=== PATIENT | female | born 1955 | race Caucasian/White ===

== ENCOUNTER → 2021-03-29 09:03 | Outpatient (CLI) | payer OTHER, SELFPAY ==
--- NOTE | ~2021-03-29 | DEXA_ITS ---
Bone Density Report Name: oVnnie Cherry Age: 66 Sex: Female Ethnicity: Date of : 1955 Indication: osteopenia; postmenopausal Referring Provider: EUNICE DELACRUZ Study: Bone densitometry was performed. Exam Date: March 29, 2021 Accession number: [id number] Bone Density: Region BMD T-score Z-score Classification AP Spine (L1-L4) 0.869 -1.6 0.1 Osteopenia Femoral Neck (Left) 0.722 -1.1 0.1 Osteopenia Total Hip (Left) 0.932 -0.1 0.9 Normal Femoral Neck (Right) 0.724 -1.1 0.2 Osteopenia Total Hip (Right) 0.908 -0.3 0.7 Normal Total Hip Mean 0.920 -0.2 0.8 Normal World Health Organization criteria for BMD impression classify patients as: Normal (T-score at or above -1.0), Osteopenia (T-score between -1.0 and -2.5), or Osteoporosis (T-score at or below -2.5). 10-year Fracture Risk(1): Major Osteoporotic Fracture 4.2% Hip Fracture 0.3% Reported Risk Factors: [place] (), Neck BMD=0.724, BMI=35.7 (1) FRAX(R) Version 3.08. Fracture probability calculated for an untreated patient. Fracture probability may be lower if the patient has received treatment. Previous Exams: Region Exam Age BMD T-score BMD Change BMD Change Date g/cm2 vs Baseline vs Previous AP Spine(L1-L4) 03/29/2021 66 0.869 -1.6 0.018 -0.047 02/25/2015 60 0.916 -1.2 0.065* 0.065* 05/01/2011 56 0.851 -1.8 Total Hip(Left) 03/29/2021 66 0.932 -0.1 0.044 0.015 02/25/2015 60 0.917 -0.2 0.029* 0.029* 05/01/2011 56 0.888 -0.4 Total Hip(Right) 03/29/2021 66 0.908 -0.3 0.029 -0.001 02/25/2015 60 0.908 -0.3 0.029* 0.029* 05/01/2011 56 0.879 -0.5 *Denotes significance at 95% confidence level, LSC for AP Spine = 0.022 g/cm2, LSC for Total Hip = 0.027 g/cm2 Clinical Information Provided by Patient: Has used the following medications: Vitamin D Patient maximum height was 64 Menopause Age: 48 No regular weight bearing exercise Drinks caffeinated beverages Onset of menses at age 13 Number of children 3 Missed period for more than 6 months in a row Impression: The patient has low bone mass, based on the Total Spine T-score. The patient has an estimated ten-year risk of hip fracture of 0.3% and an estimated ten-year risk of major fracture of 4.2%, based on the WHO FRAX algorithm. No significant bone loss was observe
--- NOTE | ~2021-03-29 | MM_ITS ---
EXAMINATION: MM screening [facility] BI w sarai HISTORY: Screening mammogram TECHNIQUE: Craniocaudal and mediolateral oblique 3-D tomosynthesis images were obtained and synthetic 2-D images were generated. CAD analysis was submitted and interpreted. COMPARISON: 02/25/2015, 02/08/2013 BREAST PARENCHYMAL COMPOSITION: The breasts are almost entirely fatty. FINDINGS: There is no evidence of suspicious mass, calcification, or architectural distortion to sugg est malignancy in either breast. There has been no suspicious interval change. IMPRESSION: 1. No mammographic evidence of malignancy. 2. Recommend routine screening mammography in one year. BI-RADS Category 1: Negative Reviewed, dictated and finalized at location A.
== END ==
PROVIDERS: PCP Family Medicine Adolescent Medicine; Visit Provider Family Medicine Adolescent Medicine
DX: Z12.31 Encounter for screening mammogram for malignant neoplasm of breast (principal); Z78.0 Asymptomatic menopausal state; M85.88 Other specified disorders of bone density and structure, other site; M85.852 Other specified disorders of bone density and structure, left thigh; M85.851 Other specified disorders of bone density and structure, right thigh
CPT/HCPCS: 77063; 77067; 77080

== ENCOUNTER → 2021-12-25 13:21 | Outpatient (CLI) | payer OTHER, SELFPAY ==
--- NOTE | ~2021-12-25 | MR_ITS ---
EXAMINATION: MR brain/brain stem wo con EXAM DATE: 12/25/2021 14:06 INDICATION: R42 - Dizziness and giddiness TECHNIQUE: Multi-sequential, multiplanar MR images of the brain, brainstem, internal auditory canals were obtained without contrast. Whole brain sagittal T1, axial diffusion, gradient echo (T2*), T1, T 2, FLAIR sequences obtained. High resolution coronal 3-D FIESTA, coronal T1 FSE, axial T1 FSPGR of t he internal auditory canals. There are no prior studies for comparison. FINDINGS: No evidence of mastoid or middle ear opacification. The 7th/8th cranial nerve complexes a re symmetric, normal in course and caliber. No cerebellopontine angle masses. Posterior fossa unrem arkable. An artery which is probably the right anterior inferior cerebellar artery is extending >50% into the respective internal auditory canal. This finding has been implicated by some in potentially causing compressive 7th/8th cranial nerve symptoms, a vascular loop compressive syndrome, but is oft en seen incidentally in asymptomatic patients. There are no areas of restricted diffusion to suggest acute infarction. There is no acute hemorrhage seen on the T2*, a hemosiderin sensitive sequence. No intraparenchymal brain mass lesion. There is mild periventricular and subcortical T2/FLAIR signal hyperintensity, nonspecific but probably relate d to small vessel ischemic disease (microangiopathy). There is mild prominence of the sulci and анна tricles related to cerebral atrophy. There are no extra-axial collections. Flow voids are seen in the cerebral arteries on the T2-weighted sequences consistent with their expected patency. The orbit s are unremarkable. Soft tissue is unremarkable. Mild to moderate right maxillary sinus mucoperiost eal thickening. IMPRESSION: 1. Mild microangiopathy and cerebral atrophy 2. Right AICA extending into interior of internal auditory canal, could be incidental. 3. Mild to moderate right maxillary sinus mucoperiosteal thickening. Reviewed, dictated and finalized at location B. IMPRESSION: 1. Mild microangiopathy and cerebral atrophy 2. Right AICA extending into interior of internal auditory canal, could be inc idental. 3. Mild to moderate right maxillary sinus mucoperiosteal thickening.
== END ==
PROVIDERS: PCP Family Medicine Adolescent Medicine; Visit Provider Physician Assistant
DX: R42 Dizziness and giddiness (principal); H53.9 Unspecified visual disturbance; R51.9 Headache, unspecified; R93.0 Abnormal findings on diagnostic imaging of skull and head, not elsewhere classified
CPT/HCPCS: 70551

== ENCOUNTER 2022-02-06 08:00 | Outpatient (RCR) | payer OTHER, SELFPAY ==
--- NOTE | 2022-01-02 16:30 | PTOPEVAL ---
Thank you for referring Vonnie Cherry to [facility].? The patient is scheduled to be seen for therapy?2 x/week for 6 weeks. Please review, sign, date and return this plan of care BONG. I agree with and certify that the following plan of care is medically necessary. Referring Physician Date Attending Provider: Darcy Duque PA-C *PT Outpatient Evaluation Start: 01/02/22 12:26 Freq: Status: Active Protocol: Document 01/02/22 12:28 CRISTINA (Rec: 01/02/22 13:27 [facility] [id number]) Therapy Assessment Status Assessment Status Assessment Status Evaluation Outpatient Past Medical History Past Medical History No Past Medical/Surgical History Patient/Family Denies Significant Past Medical/ Surgical History Evaluation Information Problem Diagnosis vertigo/dizziness Onset years Subjective Information Various bouts of vertigo Query Text:As Reported By Patient/ symptoms. She reports she has Family only ringing with loss hearing of left ear since her 20's. She reports increased symptoms with head movements in bed, sitting, rolling. Denies any issues with driving. Denies any falls in the past year. She is retired with sedentary activities. Diagnostic Tests MRI For This Problem Yes: An artery which is probably the right anterior inferior cerebellar artery i Previous Treatments Previous Treatments For This Problem no Pain Assessment Self Report Self Report Pain Level 0 Cervical and Lumbar ROM Cervical ROM Reason Not Measured WNL/Left,WNL/Right Posture Sitting Position Head/C-Spine Posture Side Bent Right Shoulder Posture (L) Rounded,(R) Rounded,(L) Elevated Balance Assessment Dynamic Gait Index Total Score () Vestibular Evaluation Vestibular Medical Information Past Vestibular History Sinus/Allergy Issues Recent Symptoms Vision Changes Previous Medical Care/Testing MRI Hearing Changes Left,Tinnitus Symptoms Increase Bend Forward,Lie Down (sit to supine),Look Up,Looking Side to Side,Quick Head Turns, Rolling in Bed,Sitting up in Bed Symptoms Decrease Holding Head in one Position Types of Symptoms Imbalanced/Unsteady,Rocking/
--- NOTE | 2022-01-23 09:36 | PTOPEVAL ---
Thank you for referring Vonnie Cherry to [facility].? The patient is scheduled to be seen for therapy? 1 visits every 2 weeks for 3 additional visits. Please review, sign, date and return this plan of care BONG. I agree with and certify that the following plan of care is medically necessary. Referring Physician Date Attending Provider: Darcy Duque PA-C Diagnosis vertigo/dizziness Onset years Subjective Information She reports improved Query Text:As Reported By Patient/ vestibular symptoms with head Family movements in bed, sitting, rolling. Denies any problems with her HEP. Reports improved community ambulation with ability to turn head during walking task without increased symptoms and improved performance and confidence with negotiating steps. Denies any increased symptoms or limitation with workers compensation administrator. Pain Assessment Self Report Pain Level 0 Balance Assessment Dynamic Gait Index Total Score () Vestibular Evaluation Vestibular Testing Smooth Pursuits Abnormal,Horizontal Plane Sitting Head Thrust WNL Gaze Stabilization with Fixation WNL Gaze Stabilization without Fixation WNL Head Shake with Fixation WNL Edd-Hallpike Left Upward Nystagmus Edd-Hallpike Right WNL Vestibular Testing Comments left eye with nystagmus with smooth pursuit Edd-Hallpike: 20 sec nystagmus General Exercise - performs vertical and horizontal head turns with walking, cues to slow head turns to allow time to focus with movement -picking up objects in multiple directions without LOB or symptoms - tossing multi colored ball vertical with tracking-no symptoms - VOR cancellation movement with UE and head horizontal turns- no symptoms. PT Clinical Summary Vonnie was referred to therapy due to BPPV symptoms.She has received 7 therapy visits from 01/02/22 to 01/23/22.
--- NOTE | 2022-02-06 15:57 | PCPTNOTE ---
Admitting Provider: Attending Provider: Darcy Duque PA-C Patient:Vonnie Cherry Date of :1955 Physical Therapy Discharge Summary Patient has been seen for 8 therapy visits to address her vertigo symptoms. She reports improved symptoms with only 1 episode of slight dizziness yesterday, while doing the exercises, that last only a few seconds, otherwise no dizziness. Able to walk the dogs,& is now getting up in the morning without symptoms. She demonstrates no LOB or vestibular symptoms with dynamic balance task on various surfaces or movement. Dynamic Gait Index has remained consistent at 22/24, improved standing with eyes closed for 30 sec , no symptoms Demonstrates negative [place]-Hallpike test kimberlee. The goals have been met to partially met at this time. Will DC skilled therapy services at this time. Thank you for referring this patient to [facility]. Please review, sign, date and return this discharge summary BONG. I have been updated about the patient's current status and I agree with discharge from the above service at this time. Referring Physician Date
== END 2022-02-09 10:39 | disposition home or self-care (01) ==
LOC: ANHPT 08:00
PROVIDERS: PCP Family Medicine Adolescent Medicine; Visit Provider Physician Assistant
DX: R42 Dizziness and giddiness (principal)
CPT/HCPCS: 97112; 97162; 97530

== ENCOUNTER → 2023-07-07 12:15 | Outpatient (CLI) | payer OTHER, SELFPAY ==
--- NOTE | ~2023-07-07 | MM_ITS ---
EXAMINATION: MM screening [facility] BI w sarai HISTORY: Screening mammogram TECHNIQUE: Craniocaudal and mediolateral oblique 3-D tomosynthesis images were obtained and synthetic 2-D images were generated. CAD analysis was submitted and interpreted. COMPARISON: 04/11/2021 bilateral screening mammogram BREAST PARENCHYMAL COMPOSITION: The breasts are almost entirely fatty. FINDINGS: There is no evidence of suspicious mass, calcification, or architectural distortion to sugg est malignancy in either breast. There has been no suspicious interval change. IMPRESSION: 1. No mammographic evidence of malignancy. 2. Recommend routine screening mammography in one year. BI-RADS Category 1: Negative Reviewed, dictated and finalized at location A.
== END ==
PROVIDERS: PCP Nurse Practitioner Family; Visit Provider Nurse Practitioner Family
DX: Z12.31 Encounter for screening mammogram for malignant neoplasm of breast (principal)
CPT/HCPCS: 77063; 77067

== ENCOUNTER → 2023-08-12 12:08 | Outpatient (CLI) | payer OTHER, SELFPAY ==
--- NOTE | ~2023-08-12 | XR_ITS ---
Right foot Technique: AP, oblique, and lateral views were obtained. Clinical History: Pain Findings: No acute fracture or dislocation is seen. Osseous alignment is anatomic. Small plantar calc aneal spur present. Joint spaces are preserved without erosive or degenerative change. Soft tissues a re unremarkable. Impression: Small plantar calcaneal spur, otherwise unremarkable exam. Reviewed, dictated and finalized at location . CUTTER Impression: Small plantar calcaneal spur, otherwise unremarkable exam.
== END ==
PROVIDERS: PCP Nurse Practitioner Family; Visit Provider Nurse Practitioner Family
DX: M79.671 Pain in right foot (principal); M77.31 Calcaneal spur, right foot
CPT/HCPCS: 73630

== ENCOUNTER 2024-07-10 10:09 | Outpatient (CLI) | payer OTHER, SELFPAY ==
--- NOTE | ~2024-07-10 | MM_ITS ---
EXAMINATION: MM screening [facility] BI w sarai HISTORY: Screening TECHNIQUE: Craniocaudal and mediolateral oblique 3-D tomosynthesis images were obtained and synthetic 2-D images were generated. CAD analysis was submitted and interpreted. COMPARISON: Comparison to multiple prior studies sequentially, with oldest reviewed study dated 09/2014. BREAST PARENCHYMAL COMPOSITION: Not Dense: The breasts are almost entirely fatty. FINDINGS: There is no evidence of suspicious mass, calcification, or architectural distortion to sugg est malignancy in either breast. There has been no suspicious interval change. IMPRESSION: 1. No mammographic evidence of malignancy. 2. Recommend routine screening mammography in one year. BI-RADS Category 1: Negative Reviewed, dictated and finalized at location B.
== END 2024-07-10 10:10 | disposition home or self-care (01) ==
PROVIDERS: PCP Family Medicine Adolescent Medicine; Visit Provider Family Medicine Adolescent Medicine
DX: Z12.31 Encounter for screening mammogram for malignant neoplasm of breast (principal)
CPT/HCPCS: 77063; 77067

== ENCOUNTER 2025-04-03 02:45 | Day surgery (SDC) | payer OTHER, SELFPAY ==
[2025-03-19 08:46] VITALS: BMI 35.4
--- OUTSIDE RECORDS SUMMARY | 2025-04-03 02:48 | XMS_ITS | Clinical Summary ---
Author Organization [facility] Address [facility] [place] [address] Care Team Providers Care Hosiery Mater Name Role Phone Roland Dos Santos MD Primary Care Provider [phone]- [phone] Allergies Active Allergy Reactions Criticality Noted Date Comments Latex Rash Low 05/01/2021 Penicillin V Rash Low 04/23/2021 Medications Cholecalciferol (VITAMIN D3) 50 MCG (1999 UT) Tab Take 1 tablet by mouth daily. Active Multiple Vitamins-Mineral s (CENTRUM SILVER 50+WOMEN OR) Take 1 tablet by mouth daily. Active Probiotic Product (PROBIOTIC ADVANCED) Cap Take 1 tablet by mouth daily. Active mirabegron ER (MYRBETRIQ) 25 MG 24 hr tablet Take 25 mg by mouth daily. Active ibandronate 150 MG tablet Take 150 mg by mouth every 30 (thirty) days. Active Immunizations Immunization Administration Dates Next Due Flublok (Quadrivalent) 07/30/2020 Influenza Adult (Generic) 10/05/2012 PFIZER COVID-19 (ORIGINAL FO RMULATION, PURPLE CAP) mRNA, LNP-S, PF, 30 MCG/0.3 ML DOSE 01/16/2021,12/26/2020 Family History Medical History Relation Comments Diabetes Brother Aneurysm Father Hypertension Father No Known Problems Sister Relation Status Comments Brother Alive Father (Age late 70s) Mother (Age mva) Sister Alive Social History Tobacco Use Types Packs/Day Years Used Date Smoking Tobacco: Never Smokeless Tobacco: Never Alcohol Use Standard Drinks/Week Comments Not Currently 0 (1 standard drink = 0.6 oz pur e alcohol) Comments No Sex and Gender Information Value Date Recorded Sex Assigned at Not on file Legal Sex Female 2:04 PM CDT Gender Identity Not on file Sexual Orientation Not on file Last Filed Vital Signs Vital Sign Reading Time Taken Comments Blood Pressure 131/61 05/01/2021 12:15 PM CDT Pulse 63 05/01/2021 12:15 PM CDT Temperature 36.4 C (97.5 F) 05/01/2021 12:15 PM CDT Respiratory Rate 16 05/01/2021 12:15 PM CDT Oxygen Saturation 99% 05/01/2021 12:15 PM CDT Inhaled Oxygen Concentration - - Weight 90.3 kg (199 lb 1.2 oz) 05/01/2021 9:00 A M CDT Height 160 cm (5' 3) 05/01/2021 9:00 AM CDT Body Mass Index 35.26 05/01/2021 9:00 AM CDT Plan of Treatment Health Maintenance Due Date Last Done Comments Colorectal Cancer Screening Colonoscopy (10 Years) 1955 Hepatitis C 02/05/1974 DTaP, Tdap and Td Vaccines ( 1 - Tdap) 02/05/1975 Mammogram Screening 1996 Pneumococcal Vaccine: 50+ Years (1 of 1 - PCV) 02/05/2006 Zoster Vaccines (1 of 2) 02/05/2006 Annual Medicare Wellness Visit 02/05/2021 Dexa Scan (General) 02/05/2021 COVID-19 Vaccine (3 - 2023-2 5 season) 2024 01/16/2021, 12/26/2020 RSV Immunization or 60+ Years (1 - 1-dose 75+ series) 02/05/2031 Meningococcal B Vaccine Aged Out No l onger eligible based on patient's age to complete this topic Meningococcal Vaccine Aged Out No anders malou eligible based on patient's age to complete this topic RSV Immunizations Under 20 Months Aged Out No longer eligible b ased on patient's age to complete this topic Medical Devices Implanted Type Area Stone Sawyer Device Identifier Shelf Expiration Date Model / Serial / Lot Sling Obtryx Halo - [id number] Implanted:Qty : 1 on 05/01/2021 by Lucius Mckenna MD at [facility] [place] N/A: Bladder A's Child [id number] 02/27/2024 [id number] 10 / [id number] Insurance ESSENCE Care Teams Hosiery Mater Relationship Specialty Start Date End Date Roland Dos Santos MD [address] [address] PCP - General FAMILY PRACTICE 04/23/21
--- OUTSIDE RECORDS SUMMARY | 2025-04-03 02:48 | XMS_ITS | Encounter Summary ---
Author Organization [facility] Address [facility] [place] [address] Care Team Providers Care Various Exceptionalities Teacher Name Role Phone Roland Dos Santos MD Primary Care Provider +1- [phone] Encounter Details Date Type Department Care Team (Late st Contact Info) Description 04/23/2021 Prep for Procedure [facility] Pre-Admission Testing [address] [place], [place] [id number] Lucius Mckenna MD [address] [facility] [place] [address] Social History Tobacco Use Types Packs/Day Years Used Date Smoking Tobacco: Never Smokeless Tobacco: Never Alcohol Use Standard Drinks/Week Comments Not Currently 0 (1 standard drink = 0.6 oz pur e alcohol) Comments No Sex and Gender Information Value Date Recorded Sex Assigned at Not on file Legal Sex Female 2:04 PM CDT Gender Identity Not on file Sexual Orientation Not on file documented as of this encounter H&P Notes * Lucius Mckenna MD - 04/23/2021 1:54 PM CDT History and Physical SUBJECTIVE Patient is 66-year-old female White Or Not Of / Origin with chief complaintof stress urinary incontience. She desires definitive surgical management. Past Medical History: Diagnosis Date ??? Anesthesia complication slow to get up from anesthesia ??? Hard of hearing left ??? Irregular heart beat was told heart heart skips a beat ??? Obesity ??? PONV (postoperative nausea and vomiting) ??? Stress incontinence, female ??? Vertigo positional- 2/2 hearing loss Past Surgical History: Procedure Laterality Date ??? TUBAL LIGATION (Not in a hospital admission) Current Outpatient Medications Medication Sig Dispense Refill ??? Cholecalciferol (VITAMIN D3) 50 MCG (1999 UT) Tab Take 1 tablet by mouth daily. ??? ibandronate 150 MG tablet Take 150 mg by mouth every 30 (thirty) days. ??? mirabegron ER (MYRBETRIQ) 25 MG 24 hr tablet Take 25 mg by mouth daily. ??? Multiple Vitamins-Minerals (CENTRUM SILVER 50+WOMEN OR) Take 1 tablet by mouth daily. ??? Probiotic Product (PROBIOTIC ADVANCED) Cap Take 1 tablet by mouth daily. No current facility-administered medications for this visit. Allergies Allergen Reactions ??? Pcn [Penicillin V] Rash Social History Tobacco Use ??? Smoking status: Never Smoker ??? Smokeless tobacco: Never Used Substance Use Topics ??? Alcohol use: Not Currently Family History Problem Relation Name Age of Onset ??? Hypertension Father ??? Aneurysm Father ??? No Known Problems Sister ??? Diabetes Brother OBJECTIVE Vitals: 24hr Min/Max: @FLOWSTAT(6,8,5,9,10:24::1)@ Most Recent : There were no vitals filed for this visit. @[id number]@ @IOTHISSHIFT@ Physical Exam: General: Patient is alert and oriented in no acute distress. Head: Normocephalic, atraumatic. Nares are symmetric without nasal flaring or respiratory distress.No lip cyanosis. Eyes: Sclera anicteric. Cardiovascular: Peripheral perfusion appears adequate. No digital clubbing or cyanosis present. Chest: Non-labored respirations. Comfortable respiratory effort without recruitment of accessory respiratory muscles. Abdominal: Abdomen soft, nontender, nondistended. No palpable masses. Gu: Urethral mobility noted Musculoskeletal: Normal station and posture. Moves all extremities symmetrically. Neurological: No focal neurologic deficit. Psychiatric: Appropriate affect and mood. Skin: Normal coloration and turgor. Hematological/Immunological: No bleeding gums or jaundice. Lymphatic: No femoral or inguinal palpable lymphadenopathy. Assessment: Stress Urinary Incontinence Plan: Pt has elected to undergo Mid-urethral sling. Risks, benefits and alternative d/w the patient. Risks include but not limited to bleeding, infection, pain, anesthesia, damage to surrounding organs. There is a risk of failure, recurrance and that this procedure will not help OAB symptoms if present and in some cases may worsen. There is a risk of mesh erosion or exposure in the vagina or urinary tract. There is a risk of urinary retention requiring catheterization and secondary procedure to lossen, cut or remove the sling. There is a risk of returning to the OR for any of the above listed complications. Patient understands and wishes to proceed. Understands will not help OAB documented in this encounter Plan of Treatment Not on file documented as of this encounter Results * CULTURE URINE (04/24/2021 1:41 PM CDT) SPEC DESCRIPTION URINE CLEAN CATCH 04/24/2021 1:41 PM CDT [facility] SPECIAL REQUESTS NO SPECIAL REQUEST 04/24/2021 1:41 PM CDT [facility] CULTURE RESULT POLYMICROBIAL GROWTH CONSISTENT WITH NORMAL GENITAL VANESSA. SUSCEPTIBILITIES NOT ROUTINELY PERFORMED. 04/25/2021 12:23 PM CDT [facility] URINE SPECIMEN OBTAINED BY CLEAN CATCH PROCEDURE / Unknown 04/24/2021 1:41 PM CDT 04/24/2021 1:54 PM CDT us Lucius Mckenna MD MICROBIOLOGY - GENERAL ORDER NATE Final Result [facility] [address] [place] [address], documented in this encounter Visit Diagnoses Diagnosis Preop examination- Primary Preoperative examination, unspecified Female stress incontinence documented in this encounter Care Teams Various Exceptionalities Teacher Relationship Specialty Start Date End Date Roland Dos Santos MD [address] [place] [id number] PCP - General FAMILY PRACTICE 04/23/21 documented as of this encounter
--- OUTSIDE RECORDS SUMMARY | 2025-04-03 02:48 | XMS_ITS | Clinical Summary ---
Author Organization [facility] Care Team Providers Care Manager Business Intelligence Name Role Phone Unavailable Primary Care Provider Unavailabl e Social History Tobacco Use Types Packs/Day Years Used Date Smoking Tobacco: Never Assessed Comments Unknown Sex and Gender Information Value Date Recorded Sex Assigned at Not on file Legal Sex Female 3:04 PM OPERATIONS LEADER Gender Identity Not on file Sexual Orientation Not on file Plan of Treatment Health Maintenance Due Date Last Done Comments DEXA Bone Density 1955 Hepatitis C Virus (HCV) Screening 1955 TdaP Immunization 1955 Colonoscopy 02/05/2001 Colorectal Cancer Screening 02/05/2001 Cologuard 02/05/2006 Immunochemical Fecal Occult Blood 02/05/2006 Mammogram 02/05/2006 Pneumococcal Immunization (5 0+ years) (1 of 1 - PCV) 02/05/2006 Zoster Immunization (1 of 2) 02/05/2006 Influenza Immunization (#1) 2024 11/0 11/2019, 10/05/2012 SARS-COV-2 Immunization ( season) 2024 01/16/2021, 12/26/2020 Respiratory Syncytial Virus (RSV) Immunization (Adult) (1 - 1-dose 75+ series) 02/05/2031 Hepatitis B Immunization Aged Out No longer eligible based on patient's age to complete this topic Meningococcal Immunization (ACWY) Aged Out No longer eligible b ased on patient's age to complete this topic Rotavirus Immunization Aged Out No lo nger eligible based on patient's age to complete this topic
[2025-04-03 12:17] VITALS: BP 144/65; PULSE 80; RESP 20; TEMP 37.1; O2SAT 100
--- NOTE | 2025-04-03 12:20 | P.PNAN_ITS ---
Anes - Initial Pre Proc Eval Procedure: Operation Date: 04/03/25 13:30 Proposed Procedures p Screening Colonoscopy - Gómez Webster DO Date/Time: 04/03/25 12:20 Surgeon: Gómez Webster DO Pre Op Diagnosis: Neoplasm screening Patient Data Age: 70 Gender: F Height: 1.6 m Weight: 86.9 kg Last Vital Signs Temp 98.8 F 04/03/25 12:17 Pulse 80 04/03/25 12:17 Resp 20 04/03/25 12:17 BP 144/65 H 04/03/25 12:17 Pulse Ox 100 04/03/25 12:17 O2 Del Method Room Air 04/03/25 12:17 Allergies Allergy/AdvReac Type Severity Reaction Status Date / Time Penicillins Allergy Mild Rash Verified 04/03/25 12:16 latex Allergy Rash Verified 04/03/25 12:16 Home Medications ?Medication ?Instructions ?Recorded ?Confirmed ?Type cholecalciferol (vitamin D3) 50 50 mcg PO DAILY 12/17/21 04/03/25 History mcg (2,000 unit) capsule multivitamin-ferrous 1 tablet PO DAILY 02/06/25 04/03/25 History fumarate-folic acid 18 mg-400 mcg tablet (Women's Daily Multivitamin) Patient hx anesthesia problems: none Family hx anesthesia problems: none Results Review: All pre-operative results and documents have been reviewed as part of the pre- operative evaluation. [facility] Surgical History Surgical History History of bladder surgery (04/2021) urethral sling 04/2021 History of tubal ligation Family History Family History Sibling Colon polyp Depression Sibling Colon polyp Diabetes mellitus Daughter Depression Father Hypertension Social History Social History Smoking status: Never smoker Second hand tobacco smoke exposure: Yes Alcohol intake: current Drinks per week: 4 Alcohol use details: social Substance use: never Substance use type: does not use Lack of Transportation: No Lack of Food: Never True Current Housing: I Have Housing Concerned About Future Housing: No Difficulty Paying Gas/Electric Bills: No Difficulty Paying for Meds: No Currently Unemployed: No Education: Decline to Answer Difficulty w/ Childcare or Family Care: No Living arrangements: with family Occupation/Education: retired Gender identity (if verbalized by the patient): Female Sexual Orientation (if Verbalized by the Patient): Straight or Heterosexual Spiritual care concerns: No Agree to blood products: Yes Anes - Eval Final PreProcedure Day of Procedure 04/03/25 12:20 Patient weight: obese Lungs: normal air movement Airway: Mallampati scale class II Neurological: alert and oriented Last oral intake: >/= 8 hours ASA classification: III Emergent: no Anesthetic plan: proceed Anesthesia type and monitoring: general GIVS and standard monitoring Results Review: All pre-operative results and documents have been reviewed as part of the pre- operative evaluation. BMI 33, VELIA on CPAP, pt walks 6-8K steps/day, no cp or sob. Informed Consent: The patient's anesthetic plan and its attendant risks and benefits were discussed with the patient/family/POA. Questions were solicited and answers provided to the satisfaction of the patient/family/POA.
[2025-04-03] MEDS: LACTATED RINGERS 1,000 ML 150 ML IV CONT (12:42)
--- NOTE | 2025-04-03 13:28 | PM.IMHP ---
H&P: HPI History of Present Illness Date/Time: 04/03/25 13:28 Chief Complaint: screening for colorectal cancer Narrative: this is a 70-year-old woman who presents for colonoscopy. She has never had a colonoscopy . She has done fit tests in the past which she reports were negative. She denies any hematochezia or melena. She denies any family history of cancer. Review of Systems Review of Systems: All systems reviewed & are unremarkable except as noted in HPI and below Constitutional: Constitutional: Denies chills, Denies fever(s), Denies headache(s) and Denies weight loss Eyes: Eyes: Denies change in vision ENT: Denies dizziness, Denies headache(s), Denies neck mass and Denies throat swelling Cardiovascular: Cardiovascular: Denies chest pain, Denies lightheadedness and Denies dyspnea Respiratory: Respiratory: Denies cough, Denies dyspnea and Denies wheezing Gastrointestinal: Gastrointestinal: Denies abdominal pain, Denies change in bowel habits, Denies nausea and Denies vomiting Genitourinary: Genitourinary: Denies hematuria and Denies dysuria Musculoskeletal: Musculoskeletal: Reports as per HPI Integumentary/Breasts: Skin/Breast: Reports as per HPI Neurologic: Denies dizziness and Denies headache(s) Allergic/Immunologic: Allergic/Immunologic: Denies throat swelling and Denies wheezing PMFSH Surgical History Surgical History History of bladder surgery (04/2021) urethral sling 04/2021 History of tubal ligation Family History Family History Sibling Colon polyp Depression Sibling Colon polyp Diabetes mellitus Daughter Depression Father Hypertension Social History Social History Smoking status: Never smoker Second hand tobacco smoke exposure: Yes Alcohol intake: current Drinks per week: 4 Alcohol use details: social Substance use: never Substance use type: does not use Lack of Transportation: No Lack of Food: Never True Current Housing: I Have Housing Concerned About Future Housing: No Difficulty Paying Gas/Electric Bills: No Difficulty Paying for Meds: No Currently Unemployed: No Education: Decline to Answer Difficulty w/ Childcare or Family Care: No Living arrangements: with family Occupation/Education: retired Gender identity (if verbalized by the patient): Female Sexual Orientation (if Verbalized by the Patient): Straight or Heterosexual Spiritual care concerns: No Agree to blood products: Yes Meds Home Medications and Allergies Home Medications ?Medication ?Instructions ?Recorded ?Confirmed ?Type cholecalciferol (vitamin D3) 50 50 mcg PO DAILY 12/17/21 04/03/25 History mcg (2,000 unit) capsule multivitamin-ferrous 1 tablet PO DAILY 02/06/25 04/03/25 History fumarate-folic acid 18 mg-400 mcg tablet (Women's Daily Multivitamin) Allergies Allergy/AdvReac Type Severity Reaction Status Date / Time Penicillins Allergy Mild Rash Verified 04/03/25 12:16 latex Allergy Rash Verified 04/03/25 12:16 Vital Signs Vital Signs - 24 hr 04/03/25 12:17 Temperature 98.8 F Pulse Rate 80 Respiratory Rate 20 Blood Pressure 144/65 H Pulse Oximetry 100 Oxygen Delivery Room Air Exam Const: General: no acute distress and alert Orientation/consciousness: patient oriented x3 HENMT: Head: normocephalic and atraumatic Ears: hearing grossly normal bilaterally Face/Nose/Sinus: Normal nares present Mouth: Yes Normal oral and palatal mucosa present Eyes: Periorbital: periorbital findings normal Sclera: sclerae normal EOM: EOMs intact bilaterally Neck: Neck: normal visual inspection, no lymphadenopathy and trachea midline Chest: Chest palpation & inspection: normal inspection of the chest Resp: Effort & Inspection: normal respiratory effort Auscultation: clear to auscultation bilaterally Cardio: Jugular venous distension: no JVD Rate: regular rate Rhythm: regular rhythm Heart sounds: S1 normal heart sound present and S2 normal heart sound present Peripheral pulses: Peripheral pulses 2+ throughout GI: Inspection: normal to inspection GI Palp: Yes Soft to palpation, No Tenderness to palpation present (GI), No Guarding due to palpation present (GI) and No Rebound tenderness present Percussion: Yes normal to percussion Auscultation: normal bowel sounds : General: Yes no CVA tenderness Back/Spine/Pelvis: Back: no CVA tenderness Neuro: General: patient oriented x3, no focal motor deficits and CN's II-XI intact bilaterally Cognition (Neuro): normal cognition Speech: normal speech Motor exam (neuro): 5/5 motor strength present throughout Extrem: General: capillary refill normal and no clubbing, cyanosis or edema Assessment and Plan Assessment and plan (1) Colon cancer screening: Code(s): Z12.11 - Encounter for screening for malignant neoplasm of colon Status: Acute Assessment and Plan: I have recommended colonoscopy. I have discussed the procedure, risks, benefits, and alternatives. Questions were answered. Patient is agreeable to proceed.
--- NOTE | 2025-04-03 13:54 | S_PTH ---
PATIENT: Vonnie Cherry LOC: [facility] #:[id number] AGE/SX: 70/F ROOM: RE04/03/[address]: Gómez Webster DO : 1955 BED: DIS: 04/03/2025 SPEC #: [id number] RECD: 04/03/25 14:17 STATUS: JOSHUA RE #: [id number] GRACE: 04/03/25 13:[address]: Gómez Webster DEPT: [facility] Surgical RECD BY: Jerome Montejo ENTERED: 04/03/25 14:17 SP TYPE: Surgical OTHR DR: Amparo Childress, LUIS ENRIQUE Tissues: A - Colon Polypectomy B - Colon Polypectomy Procedures: Hematoxylin and Eosin Stain Gross and Microscopic Level 4
[2025-04-03 13:57] VITALS: BP 94/59; PULSE 71; RESP 25; O2SAT 96
[2025-04-03 14:07] VITALS: BP 102/61; PULSE 71; RESP 20; O2SAT 97
[2025-04-03 14:17] VITALS: BP 112/64; PULSE 64; RESP 16; O2SAT 98
== END 2025-04-03 14:30 | disposition home or self-care (01) ==
PROVIDERS: PCP Nurse Practitioner Family; Visit Provider Surgery
PROC: 0DJD8ZZ Inspection of Lower Intestinal Tract, Via Natural or Artificial Opening Endoscopic (ICD-10-PCS; CPT 45378; principal; 2025-04-03 13:30)
DX: Z12.11 Encounter for screening for malignant neoplasm of colon (principal); K63.5 Polyp of colon; K57.30 Diverticulosis of large intestine without perforation or abscess without bleeding; G47.33 Obstructive sleep apnea (adult) (pediatric); E66.9 Obesity, unspecified; Z68.33 Body mass index [BMI] 33.0-33.9, adult; Z99.89 Dependence on other enabling machines and devices; Z98.890 Other specified postprocedural states; Z98.51 Tubal ligation status; Z83.719 Family history of colon polyps, unspecified
CPT/HCPCS: 45380; 88305; J2003; J2704; J7120

== ENCOUNTER 2025-07-12 10:37 | Outpatient (CLI) | payer OTHER, SELFPAY ==
--- NOTE | ~2025-07-12 | DEXA_ITS ---
Bone Density Report Name: KAUSHIK SCOTT Age: 70 Sex: Female Ethnicity: Date of : 1955 Indication: osteopenia; monitoring treatment; Referring Provider: PENG REMY Study: Bone densitometry was performed. Exam Date: July 12, 2025 Accession number: [id number] Bone Density: Region BMD T-score Z-score Classification AP Spine(L1-L4) 0.835 -1.9 0.1 Osteopenia Femoral Neck (Left) 0.741 -1.0 0.6 Normal Total Hip (Left) 0.967 0.2 1.4 Normal Femoral Neck (Right) 0.739 -1.0 0.6 Normal Total Hip (Right) 0.931 -0.1 1.2 Normal Total Hip Mean 0.949 0.1 1.3 Normal World Health Organization criteria for BMD impression classify patients as: Normal (T-score at or above -1.0), Osteopenia (T-score between -1.0 and -2.5), or Osteoporosis (T-score at or below -2.5). 10-year Fracture Risk: FRAX not reported because: Treated for osteoporosis Previous Exams: -- Region Exam Age BMD T-score BMD Change BMD Change Date g/cm2 vs Baseline vs Previous -- AP Spine (L1-L4) 07/12/2025 70 0.835 -1.9 -1.9% -3.9%# 03/29/2021 66 0.869 -1.6 2.1%# -5.1%# 02/25/2015 60 0.916 -1.2 7.7%* 7.7%* 05/01/2011 56 0.851 -1.8 Total Hip(Left) 07/12/2025 70 0.967 0.2 8.9%* 3.7%# 03/29/2021 66 0.932 -0.1 5.0%# 1.6%# 02/25/2015 60 0.917 -0.2 3.3%* 3.3%* 05/01/2011 56 0.888 -0.4 Total Hip(Right) 07/12/2025 70 0.931 -0.1 5.9%* 2.6%# 03/29/2021 66 0.908 -0.3 3.3%# -0.1%# 02/25/2015 60 0.908 -0.3 3.3%* 3.3%* 05/01/2011 56 0.879 -0.5 -- *Denotes significance at 95% confidence level, LSC for AP Spine = 0.022 g/cm2, LSC for Total Hip = 0.027 g/cm2 # Denotes dissimilar scan types or analysis methods Clinical Information Provided by Patient: Is being treated for osteoporosis Has used the following medications: Vitamin D, Calcium Patient maximum height was 63 Menopause Age: 48 No regular weight bearing exercise Drinks caffeinated beverages Onset of menses at age 13 Number of children 3 Impression: The patient has low bone mass, based on the Total Spine T-score. Unable to evaluate interval change due to the use of different scan modes. Discussion: PATIENT UNDER TREATMENT WITH NO SIGNIFICANT BMD LOSS SINCE LAST EXAM. In an untreated patient, BMD typically declines with age. A lack of decline or gain is usually a sign that treatment is efficacious and fracture risk is reduced. It is important to ask patients whether they are taking their medications and to encourage continued and appropriate compliance with their osteoporosis therapies to reduce fracture risk. It is also important to review their risk factors and encourage appropriate calcium and vitamin D intakes, exercise, fall prevention and other lifestyle measures. Follow-Up: Consider a repeat BMD and Vertebral Fracture Assessment (VFA) exam in 2 years or sooner if medically necessary, to reassess this patient's status. Reported by: JITENDRA on 07/12/2025 11:16:00 AM. Reviewed, dictated and finalized at location A.
--- NOTE | ~2025-07-12 | MM_ITS ---
EXAMINATION: MM screening sharif BI w sarai HISTORY: Screening TECHNIQUE: Craniocaudal and mediolateral oblique 3-D tomosynthesis images were obtained and synthetic 2-D images were generated. CAD analysis was submitted and interpreted. COMPARISON: 07/07/2023 BREAST PARENCHYMAL COMPOSITION: Not Dense: The breasts are almost entirely fatty. FINDINGS: There is no evidence of suspicious mass, calcification, or architectural distortion to suggest malignancy. There has been no suspicious interval change. IMPRESSION: 1. No mammographic evidence of malignancy. Recommend routine screening mammography in one year. BI-RADS Category 2: Benign finding(s) Reviewed, dictated and finalized at location Q. IMPRESSION: 1. No mammographic evidence of malignancy. Recommend routine screening mammogra phy in one year. BI-RADS Category 2: Benign finding(s)
== END 2025-07-12 10:38 | disposition home or self-care (01) ==
LOC: MICIMG 10:39
PROVIDERS: PCP Nurse Practitioner Family; Visit Provider Family Medicine Adolescent Medicine
DX: Z12.31 Encounter for screening mammogram for malignant neoplasm of breast (principal); M85.88 Other specified disorders of bone density and structure, other site
CPT/HCPCS: 77063; 77067; 77080